=== PATIENT | female | born 1955 | race Caucasian/White ===

== ENCOUNTER 2022-09-26 11:43 | Outpatient (CLI) | payer MEDICARE, SELFPAY ==
--- NOTE | ~2022-09-26 | MR_ITS ---
EXAMINATION: MR lumbar spine wo con DATE: 09/26/2022 13:33 INDICATION: Quadriceps weakness TECHNIQUE: Magnetic resonance imaging (MRI) of the lumbar spine was performed without intravenous con trast. Sequences included sagittal T2-weighted FSE, sagittal T2-weighted FS FSE, sagittal T1-weighted FSE, and axial T2-weighted FSE. COMPARISON: None FINDINGS: S-shaped curvature of the lumbar and lower thoracic spine with 9 degrees levocurvature measured betwe en T12 and L3 and 5 degrees dextrocurvature between L3 and L5. Sagittal alignment is normal. Vertebra l body heights are normal. Small Schmorl's node along the inferior endplate of L1. Small T1 hyperinte nse hemangioma at L1 and L4. Mild fibrofatty degenerative endplate changes along the anterior endplat es at multiple levels in the lumbar and lower thoracic spine. Mild disc height loss at L3-L4 and with right-sided predominance at L1-L2 and L2-L3. The conus medullaris terminates at L1-L2. There is norm al signal in the caudal spinal cord. Paravertebral soft tissues are unremarkable. The following disc levels are specifically discussed: T12-L1: Disc is minimally bulging. There is mild bilateral facet joint osteoarthritis. There is no ne ural foraminal stenosis. There is no central canal stenosis. L1-L2: Disc is bulging. There is mild bilateral facet joint osteoarthritis. There is mild bilateral n eural foraminal stenosis. There is mild central canal stenosis. L2-L3: Disc is bulging with annular fissure. There is mild right and moderate left facet joint osteoa rthritis. There is mild bilateral neural foraminal stenosis. There is mild central canal stenosis. L3-L4: Disc is bulging with annular fissure There is mild bilateral facet joint osteoarthritis. There is mild bilateral neural foraminal stenosis. There is mild central canal stenosis. L4-L5: Disc is bulging. There is severe bilateral facet joint osteoarthritis. There is a 10 x 7 x 6 m m synovial cyst arising from the medial aspect of the right facet joint which contributes to narrowin g of the central canal and right lateral recess. There is mild bilateral neural foraminal stenosis. T here is mild central canal stenosis and mild on the right lateral recess. L5-S1: Disc is minimally bulging. There is moderate right and severe left facet joint osteoarthritis. There is negligible bilateral neural foraminal stenosis. There is no central canal stenosis. IMPRESSION: 1. Mild lumbar spondylosis. Reviewed, dictated and finalized at location A. IMPRESSION: 1. Mild lumbar spondylosis.
== END 2022-09-26 11:44 | disposition home or self-care (01) ==
LOC: ANHIMG 11:51
PROVIDERS: PCP Student in an Organized Health Care Education/Training Program; Visit Provider Orthopaedic Surgery
DX: M62.81 Muscle weakness (generalized) (principal); M47.896 Other spondylosis, lumbar region
CPT/HCPCS: 72148

== ENCOUNTER 2022-11-19 13:58 | Outpatient (CLI) | payer MEDICARE, SELFPAY ==
--- NOTE | 2022-11-19 14:56 | ECG_ITS ---
Measurements Intervals Lewis Rate: 63 P: 33 NE: 170 QRS: -5 QRSD: 110 T: 11 QT: 418 QTc: 429 Interpretive Statements SINUS RHYTHM LOW QRS VOLTAGE IN PRECORDIAL LEADS INCOMPLETE RIGHT BUNDLE BRANCH BLOCK BORDERLINE T WAVE ABNORMALITY- ANTERIOR LEADS BASELINE ARTIFACT- I, II, III, AVR, AVL, AVF, V1-V6 BORDERLINE ECG NO PREVIOUS ECG AVAILABLE FOR COMPARISON Electronically Signed On 11-19-2022 18:45:46 CDT by Miguel Edwards D.O.
[2022-11-19 15:40] LABS: Basophils Absolute Auto 0.1 K/mm3 (0.0-0.1); Basophils Percent Auto 0.7 % (0.2-1.2); Eosinophils Absolute Auto 0.2 K/mm3 (0-0.3); Eosinophils Percent Auto 2.4 % (0-4.4); Hematocrit 40.1 % (37.0-47.0); Hemoglobin 12.7 g/dL (12.0-15.0); Immature Granulocyte Absolute 0.01 K/mm3 (0.00-0.031); Immature Granulocyte Percent A 0.1 % (0-0.5); Lymphocytes Absolute Auto 2.41 K/mm3 (0.9-3.2); Lymphocytes Percent Auto 33.5 % (18.3-44.2); Mean Corpuscular HGB Conc 31.7 g/dl (32-36); Mean Corpuscular Hemoglobin 29.3 pg (26-34); Mean Corpuscular Volume 92.6 fl (80-100); Mean Platelet Volume 9.9 fl (7.4-10.4); Monocytes Absolute Auto 0.5 K/mm3 (0.1-0.6); Monocytes Percent Auto 6.4 % (2.6-8.5); Neutrophils Absolute Auto 4.1 K/mm3 (1.3-6.7); Neutrophils Percent Auto 56.9 % (45.5-73.1); Platelet Count Result 267 k/mm3 (150-375); Red Blood Count 4.33 M/mm3 (4.2-5.4); Red Cell Distribution Width 12.8 % (11.5-14.5); White Blood Count 7.2 K/mm3 (4.5-10.0)
[2022-11-19 15:54] LABS: Albumin Level 4.3 g/dL (3.5-5.1); Anion Gap 8 mmol/L (8-16); Blood Urea Nitrogen 13 mg/dL (7-17); Carbon Dioxide 24 mmol/L (22-30); Chloride 105 mmol/L (98-107); Estimated Glomerular Filt Rate > 60; Glucose 100 mg/dL (65-110); Potassium 3.5 mmol/L (3.4-5.0); Sodium 137 mmol/L (137-145)
[2022-11-19 16:18] LABS: Urine Cotinine NEGATIVE
[2022-11-19 16:25] LABS: Hemoglobin A1C 5.5 % (<5.7)
== END 2022-11-19 13:59 | disposition home or self-care (01) ==
LOC: ANHSURGERY 14:03
PROVIDERS: PCP Student in an Organized Health Care Education/Training Program; Visit Provider Orthopaedic Surgery
DX: M17.12 Unilateral primary osteoarthritis, left knee (principal); Z01.818 Encounter for other preprocedural examination; I45.10 Unspecified right bundle-branch block
CPT/HCPCS: 80048; 80307; 82040; 83036; 85025; 87081; 93005

== ENCOUNTER 2022-12-10 02:16 | Day surgery (SDC) | payer MEDICARE, SELFPAY ==
[2022-11-19 14:08] VITALS: BMI 32.6
--- NOTE | 2022-11-19 14:36 | PC.NURSE ---
Report to the Outpatient Waiting Room, entrance under the green pavilion located off [facility], at time __0600 on date __12/10/22 . Planned Procedure Time: _0730 . Time changes happen often and if your time is changed the preop area will call you the afternoon before. - You and your visitor will be asked to self-screen and do not enter if you have any COVID symptoms. - A mask is optional within the hospital at this time. Patients may have clear liquids (water, carbonated beverages, clear teas, apple juice) until 3 hours prior to surgery with a maximum of 20 ounces. - No food from midnight until time of surgery - Infants may have breast milk until 4 hours before surgery, formula 6 hours prior to surgery. - Children will be allowed to drink immediately following surgery. If applicable, please bring a bottle or sippy cup to assist with drinking. Juice, water, soda, and popsicles are readily available. For infants on formula, please bring formula the day of surgery. Pacifiers are allowed. Take the following medications with a SIP of water the morning of surgery: ALPRAZOLAM IF NEEDED,FLUOXETIEN,GABAPENTIN,METOPROLOL DO NOT STOP ANY OF YOUR OTHER PRESCRIPTION MEDICATIONS PRIOR TO SURGERY ?EXCEPT THE FOLLOWING Medications to discontinue per physician ____ALL VITAMINS 3 DAYS PRE OP.LAST DOSE 12/06/22 Please no make-up, nail croatian, hairspray, perfume, deodorant, or body powder the day of surgery. No jewelry (including any body piercings) or valuables the day of surgery, leave them at home. Please take a shower or bath the night before, or the morning of, surgery with an antibacterial soap. Wear comfortable, loose fitting clothing. Children are encouraged to wear pajamas. - Jewelry must be removed prior to entering the operating room. Rings and piercings that are not removed may be cut off. - The hospital will not accept responsibility for valuables. - Please leave all valuables, including medications, at home the day of surgery. If you are going home after surgery, a licensed pile driver engineer must drive you home. - NO public transportation without another adult if you receive anesthesia. - We recommend that an adult stay with you for 24 hours following discharge. - We also recommend that you do not drive, make important decision, drink alcoholic beverages, or take any drugs that were not prescribed by your health care provider for at least 24 hours after your discharge time. For Pediatric surgeries, we recommend two adults accompany the child home. Follow any additional instructions given to you from your surgeon. If you or anyone in your household have experienced Covid symptoms in the past week, please notify your surgeon or the nurse liaison at the phone number below for possible testing. VERBAL AND WRITTEN instructions given to _PATIENT and asked if any additional questions and then verbalized understanding. Patient advised to call surgeon office or pre surgery nurse liaison [phone] if any additional questions.
[2022-11-19 14:52] VITALS: BP 126/63; PULSE 67; RESP 18; TEMP 37; O2SAT 98
--- NOTE | 2022-12-07 11:31 | PM.IMHP ---
H&P: HPI History of Present Illness Date/Time: 12/07/22 11:31 Chief Complaint: Left knee DJD Narrative: 67-year-old female patient of presents today for a left total knee arthroplasty. She has had continued symptoms in the for years. She has had 2 previous arthroscopies to the knee. She has had cortisone injections in the past she has tried bracing as well as anti-inflammatory medications. She has severe medial compartment osteoarthritis and continued symptoms of pain in the knee. She feels that the pain is affecting lifestyle at this point she would like to proceed with total knee arthroplasty rather continue nonsurgical treatment. Review of Systems Review of Systems: All systems reviewed & are unremarkable except as noted in HPI and below PMFSH Social History Social History Smoking status: Never smoker Additional smoking assessment comments: DENIES ANY FORM OF TOBACCO USE Alcohol intake: current Alcohol use details: 2 DRINKS PER MONTH Living arrangements: with family Spiritual care concerns: No Meds Home Medications and Allergies Home Medications Medication Instructions Recorded Confirmed Type alprazolam 0.5 mg tablet 0.5 mg PO PRN PRN Anxiety 11/19/22 11/19/22 History celecoxib 200 mg capsule 200 mg PO DAILY 11/19/22 11/19/22 History cholecalciferol (vitamin D3) 125 125 mcg PO DAILY 11/19/22 11/19/22 History mcg (5,000 unit) tablet fluoxetine 20 mg capsule 20 mg PO DAILY 11/19/22 11/19/22 History gabapentin 300 mg capsule 300 mg PO BID FIBROMYALGIA 11/19/22 11/19/22 History gabapentin 300 mg capsule 600 mg PO HS 11/19/22 11/19/22 History metoprolol succinate 25 mg 25 mg PO DAILY MIGRAINS 11/19/22 11/19/22 History tablet,extended release 24 hr minoxidil 2.5 mg tablet 1.25 mg PO DAILY 11/19/22 11/19/22 History zolpidem 5 mg tablet 5 mg PO HS 11/19/22 11/19/22 History Allergies Allergy/AdvReac Type Severity Reaction Status Date / Time No Known Allergies Allergy Unverified 11/19/22 14:09 Exam Narrative: 67-year-old female alert pleasant. She is 5 ft 3 199 lb BMI is 35.3 motion left knee is from 0-125. she has severe tenderness pes bursa. Severe tenderness over greater trochanter. She has normal abduction strength in lateral position. She has some chronic weakness with quadriceps extension strength. There is a mild effusion left knee. Hip range of motion causes no discomfort. She has normal sensation both lower extremities. 2+ dorsalis pedis pulse in foot. Pain with the patellofemoral inhibition testing. She does report some numbness to the lateral calf which is chronic. Resp: Auscultation: clear to auscultation bilaterally Cardio: Rate: regular rate Rhythm: regular rhythm Assessment and Plan Assessment and plan (1) Left knee DJD: Code(s): M17.12 - Unilateral primary osteoarthritis, left knee Status: Acute Plan 67-year-old female who has severe medial compartment osteoarthritis with continued symptoms. Again this point she feels she is ready to proceed with total arthroplasty. Surgical procedure as well as risks and complications were discussed in detail and all questions were answered and we will proceed. Patient will avoid any aspirin ibuprofen products 1 week prior to surgery. We will not have her take her Celebrex the morning of surgery. She will see her primary care doctor for pre-surgical clearance. Patient's nasal swab was negative. Chem panel is all within normal limits creatinine is 0.70. Hemoglobin 12.7 and platelets are 267 will plan to use Eliquis for DVT prophylaxis postoperatively.
[2022-12-10] VITALS (17 sets, daily range): BP systolic 110–147; BP diastolic 51–71; PULSE 64–94; RESP 14–20; TEMP 35.9–36.8; O2SAT 91–100
--- NOTE | ~2022-12-10 | XR_ITS ---
EXAMINATION: [id number] DATE: 12/10/2022 11:00 INDICATION: Postoperative evaluation following left total knee arthroplasty. TECHNIQUE: Anteroposterior and lateral views of the left knee were obtained. COMPARISON: None. FINDINGS: Left total knee arthroplasty without patellar resurfacing appears well seated and in near anatomic al ignment. No fractures identified. Expected postoperative subcutaneous and intra-articular gas. IMPRESSION: 1. Left total knee arthroplasty, negative for postoperative purposes. Reviewed, dictated and finalized at location A.
[2022-12-10] MEDS: ACETAMINOPHEN 500 MG TABLET 1000 MG PO ×3 (06:25→23:46)
[2022-12-10] MEDS: TRANEXAMIC ACID 1,000MG/ISO100 1,000 MG/100 ML BAG 200 MG IVPB (06:30)
[2022-12-10] MEDS: LACTATED RINGERS 1,000 ML 30 ML IV CONT ×2 (06:30→11:00)
[2022-12-10] MEDS: VANCOMYCIN 1,250 MG/NS 250 ML BAG 166.67 MG IVPB (06:30)
--- NOTE | 2022-12-10 07:08 | P.PNAN_ITS ---
Anes - Initial Pre Proc Eval Procedure: Operation Date: 12/10/22 07:30 Proposed Procedures p Left Total Knee Arthroplasty - Sumit Quezada MD Date/Time: 12/10/22 07:08 Surgeon: Sumit Quezada MD Pre Op Diagnosis: oa left knee Patient Data Age: 67 Gender: F Height: 1.65 m Weight: 88.6 kg Last Vital Signs Temp 97.5 F L 12/10/22 06:13 Pulse 72 12/10/22 06:13 Resp 18 12/10/22 06:13 BP 128/71 12/10/22 06:13 Pulse Ox 94 12/10/22 06:13 O2 Del Method Room Air 12/10/22 06:13 Allergies Allergy/AdvReac Type Severity Reaction Status Date / Time No Known Allergies Allergy Unverified 12/10/22 06:48 Home Medications Medication Instructions Recorded Confirmed Type alprazolam 0.5 mg tablet 0.5 mg PO PRN PRN Anxiety 11/19/22 11/19/22 History celecoxib 200 mg capsule 200 mg PO DAILY 11/19/22 12/10/22 History cholecalciferol (vitamin D3) 125 125 mcg PO DAILY 11/19/22 12/10/22 History mcg (5,000 unit) tablet fluoxetine 20 mg capsule 20 mg PO DAILY 11/19/22 12/10/22 History gabapentin 300 mg capsule 300 mg PO BID FIBROMYALGIA 11/19/22 12/10/22 History gabapentin 300 mg capsule 600 mg PO HS 11/19/22 12/10/22 History metoprolol succinate 25 mg 25 mg PO DAILY MIGRAINS 11/19/22 12/10/22 History tablet,extended release 24 hr minoxidil 2.5 mg tablet 1.25 mg PO DAILY 11/19/22 12/10/22 History zolpidem 5 mg tablet 5 mg PO HS 11/19/22 12/10/22 History Laboratory Tests 12/10/22 06:22 Blood Type Pending Antibody Screen Pending Patient hx anesthesia problems: none Family hx anesthesia problems: none Results Review: All pre-operative results and documents have been reviewed as part of the pre- operative evaluation. PMFSH Social History Social History Smoking status: Never smoker Additional smoking assessment comments: DENIES ANY FORM OF TOBACCO USE Alcohol intake: current Alcohol use details: 2 DRINKS PER MONTH Living arrangements: with family Spiritual care concerns: No Anes - Eval Final PreProcedure Day of Procedure 12/10/22 07:08 Patient weight: obese Heart: regular rate and rhythm Lungs: clear to auscultation Airway: Mallampati scale class II Neurological: alert and oriented Last oral intake: >/= 8 hours ASA classification: III Emergent: no Anesthetic plan: proceed Anesthesia type and monitoring: general LMA and ETT and standard monitoring Results Review: All pre-operative results and documents have been reviewed as part of the pre-operative evaluation. Informed Consent: The patient's anesthetic plan and its attendant risks and benefits were discussed with the patient/family/POA. Questions were solicited and answers provided to the satisfaction of the patient/family/POA.
--- NOTE | 2022-12-10 07:15 | WPDHPUPDATE1 ---
History and Physical Update Update Date/Time: 12/10/22 07:15 History and Physical has been reviewed, including an updated exam of the patient. There are NO changes in the patient's condition. Risks, benefits, and alternatives have been discussed and questions answered. Patient agrees to proceed with procedure.
[2022-12-10] MEDS: ceFAZolin 2 GM/D5W 50 ML 2 GM/50 ML BAG IVPB (07:34)
[2022-12-10] MEDS: ceFAZolin SODIUM 1 GM VIAL 3 GM IRRIGATION (09:17)
[2022-12-10] MEDS: GENTAMICIN BONE CEMENT REFOBACIN 1 EACH TOPICAL (09:47)
[2022-12-10] MEDS: ceFAZolin SODIUM 1 GM VIAL 2 GM IV PUSH (10:03)
[2022-12-10] MEDS: TRANEXAMIC ACID 1,000 MG/10 ML AMPUL 1 MG IV PUSH (10:12)
[2022-12-10] MEDS: KETOROLAC 15 MG/ML VIAL (*BKC) IV PUSH ×3 (10:24→19:10)
--- NOTE | 2022-12-10 10:54 | W.PM.PROC2 ---
Procedure Note - Detailed Date of Procedure 12/10/22 Pre-op Diagnosis oa left knee, obesity with BMI of 35.3 Post-op Diagnosis Same Procedure Performed Left total knee arthroplasty Surgeon Sumit Quezada MD Workforce Manager [facility] Anesthesia General Description of Procedure Patient had a BMI of 5.2 and there was obesity distribution in the lower extremities and around the knee which added extra difficulty to the procedure estimated at adding 45 minutes of operative time. Patient was brought to the operating room and general anesthesia was administered. She received 2 g of Ancef weight based vancomycin 1 g of tranexamic acid preoperatively and the left leg prepped and draped in the usual fashion. Initially she had a mildly positive bounce but has anesthesia deep and she seemed to hyperextend a couple of degrees and had a fair amount of varus valgus pseudolaxity. Limb was exsanguinated and tourniquet elevated to 300 mmHg. An 8 in longitudinal midline incision was used and a vastus medialis splitting approach utilized splitting the vastus medialis at the level of the superior pole the patella. Infrapatellar and suprapatellar fat pads were excised the quadriceps synovectomy carried out. Minimal osteophytes removed patella the articular cartilage of the patella was in good condition mild central chondromalacia. Patellar thickness was 20 mm. Taking in consideration the thinness of the patella her weight and the relative osteopenia I felt that non resurfacing of the patella was most appropriate for her. A limited lateral facetectomy was performed. A guide jerry was inserted on femoral canal after aspiration of canal contents and using the 5 degree valgus cutting bushing, 8 mm of bone removed the distal femur. This measured off the lateral femoral condyle actually little bit less this was removed the medial femoral condyle because of marked bone wear. Next the tibial plateau was cut. We made a skim cut just under the cortical bone of the low point of medial tibial plateau. This was made perpendicular to the axis of tibia. Bone quality of the lateral tibial plateau was a little softer as was the bone of lateral femoral condyle. Bone density medially medial femoral condyle and medial tibial plateau was much better. Meniscal remnants were excised and the PCL was recessed. Flexion gap measured 8 mm medially 12 mm laterally after provisional removal of medial tibial plateau osteophyte without any capsular strip. The sizing guide was applied at 4? of external rotation posterior referencing pinholes were placed. This reference well off Whitesides line. And we applied the size 62.5 vanguard cutting block. This was going to notch little bit so we did flexed the distal femoral cut a couple of degrees. The bone density was a little bit poor for fixation of the pins in the bone and we used the threaded stabilizing pins spring pins as well. AP and chamfer cuts were made. The size 62.5 while sitting flush on the medial side hung over the lateral side about 1 mm distal anterior was line to line anteriorly distally. Tibia was sized to a size 67 which fit line to line anteromedial to posterolateral at proper rotation. This was punched. We trialed with the 10 insert. The knee lacked full extension with no play medially and 2 or 3 mm plate laterally. The little bit of protruding posteromedial tibial plateau bone was removed again without release of capsule and additional 1 mm of bone was removed the distal femur and posterior femoral osteophytes removed at this time. Tourniquet had been put down at 90 minutes. Trialing with the tourniquet down knee came out easily now to full extension with a mm and half of medial opening 3 mm lateral opening and appropriate stability throughout range motion. With the arthrotomy towel clip the knee came out still to full extension with a mm of medial opening and excellent anterior drawer stability in all positions. [place] flexion was to abo
--- NOTE | 2022-12-10 11:06 | PM.OP ---
Procedure Note - Brief Procedure Note - Brief Date of procedure: 12/10/22 oa left knee Procedure performed: Left total knee arthroplasty Surgeon: MAIDA Li Findings: 67-year-old female who underwent left total knee arthroplasty on 12/10. I was involved in the procedure including positioning patient on the OR table as well as 1st assisting through the time surgery. Total time spent was 3 hours
[2022-12-10] MEDS: fentaNYL CITRATE INJ (*CRX) 100 MCG/2 ML VIAL 25 MCG IV PUSH ×8 (11:12→11:51)
[2022-12-10] MEDS: HYDROmorphone HCL INJ (*CRX) 1 MG/ML SYR 0.5 MG IV PUSH ×4 (12:07→12:57)
[2022-12-10] MEDS: SENNA/DOCUSATE SODIUM TABLET 2 TAB PO (15:59)
[2022-12-10] MEDS: oxyCODONE HCL (*CRX) 5 MG TAB IR PO ×3 (15:59→23:46)
[2022-12-10] MEDS: GABAPENTIN 300 MG CAPSULE PO (15:59)
[2022-12-10] MEDS: ceFAZolin 1 GM/NS 50 ML 1 GM/50 ML BAG IVPB ×2 (16:01→23:46)
[2022-12-10 17:11] LABS: Vitamin D 25 Hydroxy 39.9 ng/mL
[2022-12-10] MEDS: VANCOMYCIN 1,000 MG/NS 250 ML 1,000 MG/250 ML BAG 250 MG IVPB (19:11)
[2022-12-10] MEDS: ZOLPIDEM TARTRATE (*CRX) 5 MG TABLET PO (20:17)
[2022-12-10] MEDS: FAMOTIDINE 20 MG TABLET PO (20:17)
[2022-12-10] MEDS: GABAPENTIN 300 MG CAPSULE 600 MG PO (20:17)
[2022-12-11 02:57] VITALS: BP 105/46; PULSE 65; RESP 18; TEMP 36.3; O2SAT 92
[2022-12-11] MEDS: VANCOMYCIN 1,000 MG/NS 250 ML 1,000 MG/250 ML BAG 250 MG IVPB (05:04)
[2022-12-11] MEDS: ACETAMINOPHEN 500 MG TABLET 1000 MG PO ×2 (05:04→12:00)
[2022-12-11] MEDS: oxyCODONE HCL (*CRX) 5 MG TAB IR PO ×3 (05:04→12:00)
[2022-12-11] MEDS: DEXAMETHASONE SOD PHOS INJ 4 MG/ML VIAL 8 MG IV PUSH ×2 (06:00→12:00)
--- NOTE | 2022-12-11 06:13 | PM.PNORT ---
Subjective Subjective Date/Time Seen: 12/11/22 06:13 Interval history: Postop day 1 patient is alert. She is afebrile vital signs stable. Morning labs are not completed yet. She was up walking yesterday with physical therapy in [place]. Overall pain is very well controlled. Dressing is dry and intact. Neurovascularly she is intact. Overall patient is doing very well. We will plan to have her work with therapy today and discharge her home either later this morning or this afternoon depending on how she does with therapy Objective Data Vital Signs Vital Signs: Vital Signs - 24 hr 12/10/22 11:00 12/10/22 11:15 12/10/22 11:30 Temperature 36.8 C Pulse Rate 82 73 74 Respiratory Rate 20 18 18 Blood Pressure 130/61 135/63 123/60 Pulse Oximetry 97 100 100 Oxygen Delivery Simple Face Mask Simple Face Mask Simple Face Mask Oxygen Flow Rate 8 8 8 12/10/22 11:35 12/10/22 11:50 12/10/22 12:00 Temperature 36.8 C Pulse Rate 76 75 64 Respiratory Rate 15 14 14 Blood Pressure 125/61 122/57 L 124/64 Pulse Oximetry 99 94 99 Oxygen Delivery Room Air Room Air Room Air Oxygen Flow Rate 12/10/22 12:15 12/10/22 12:30 12/10/22 12:45 Temperature Pulse Rate 71 71 72 Respiratory Rate 18 16 18 Blood Pressure 117/66 131/55 L 147/65 H Pulse Oximetry 99 100 99 Oxygen Delivery Room Air Room Air Room Air Oxygen Flow Rate 12/10/22 13:00 12/10/22 13:20 12/10/22 13:35 Temperature 35.9 C L 36.0 C L Pulse Rate 72 69 75 Respiratory Rate 16 17 17 Blood Pressure 134/61 143/62 H 137/62 Pulse Oximetry 99 98 93 Oxygen Delivery Room Air Oxygen Flow Rate 12/10/22 14:05 12/10/22 14:30 12/10/22 15:05 Temperature 36.3 C L 36.3 C L Pulse Rate 79 93 Respiratory Rate 16 16 Blood Pressure 135/61 110/63 Pulse Oximetry 97 96 Oxygen Delivery Room Air Oxygen Flow Rate 12/10/22 14:00 12/10/22 19:51 12/10/22 18:57 Temperature 36.6 C Pulse Rate 90 Respiratory Rate 18 Blood Pressure 113/51 L Pulse Oximetry 95 Oxygen Delivery Room Air Room Air Oxygen Flow Rate 12/10/22 22:57 12/11/22 02:57 Temperature 36.3 C L Pulse Rate 94 65 Respiratory Rate 18 18 Blood Pressure 123/71 105/46 L Pulse Oximetry 91 92 Oxygen Delivery Oxygen Flow Rate Intake/Output Intake/Output: Intake & Output 12/08/22 12/09/22 12/10/22 12/11/22 23:59 23:59 23:59 23:59 Intake Total 650 700 Balance 650 700 Meds/Results Medications: Active Medications Generic Name Dose Route Start Last Admin Trade Name Freq PRN Reason Stop Dose Admin Acetaminophen 1,000 mg 12/10/22 18:00 12/11/22 05:04 Acetaminophen 500 Mg Tablet PO 1,000 mg Q6H JANNETH Administration Apixaban 2.5 mg 12/11/22 09:00 Apixaban 2.5 Mg Tablet PO 12/22/22 21:01 Q12HR JANNETH Calcium Citrate 1 tablet 12/10/22 17:00 12/10/22 15:59 Calcium Citrate 315 Mg/Vitamin D 250 Units Tab PO 1 tablet BID JANNETH Administration Cefdinir 300 mg 12/11/22 09:00 Cefdinir 300 Mg Capsule PO Q12HR [facility] Dexamethasone Sodium Phosphate 8 mg 12/11/22 07:00 12/11/22 06:00 Dexamethasone Sod Phos Inj 4 Mg/Ml Vial IV PUSH 8 mg Q6HR JANNETH Administration Diphenhydramine HCl 25 mg 12/10/22 13:12 Diphenhydramine Hcl Inj 50 Mg/Ml Vial IV PUSH Q6H PRN Itching Famotidine 20 mg 12/10/22 21:00 12/10/22 20:17 Famotidine 20 Mg Tablet PO 20 mg Q12HR JANNETH Administration Fluoxetine HCl 20 mg 12/11/22 09:00 Fluoxetine Hcl 20 Mg Capsule PO DAILY JANNETH Gabapentin 300 mg 12/10/22 17:00 12/10/22 15:59 Gabapentin 300 Mg Capsule PO 300 mg BID JANNETH Administration Gabapentin 600 mg 12/10/22 21:00 12/10/22 20:17 Gabapentin 300 Mg Capsule PO 600 mg HS JANNETH Administration Vancomycin HCl 1,000 mg in 250 mls @ 250 mls/hr 12/10/22 18:00 12/11/22 06:04 Vancomycin 1,000 Mg/Ns 250 Ml IVPB 12/11/22 06:59 Infused Q12H JANNETH Infusion Cefazolin Sodium 1 gm in 50 mls @ 100 mls/hr
--- NOTE | 2022-12-11 06:17 | PM.DS ---
DS: Admitting Diagnosis Discharge Date 12/11 Admitting Diagnosis Left knee DJD DS: Discharge Diagnosis Discharge Diagnosis (1) Left knee DJD: Code(s): M17.12 - Unilateral primary osteoarthritis, left knee Status: Acute DS: Summary Hospital Course Hospital Course: 67-year-old female underwent left total knee arthroplasty on 12/10. Underwent the procedure without complications. Postoperatively she has been afebrile vital signs are stable. Neurovascularly she is intact. She was up walking with physical therapy the day of surgery and is comfortable. Pain is well controlled with scheduled Tylenol as well as oxycodone 5 mg. She is on Eliquis for DVT prophylaxis. Patient has a history of brain aneurysm so we are not continues Celebrex on her while she is on the Eliquis. Postop day 1 she was alert comfortable. Patient be discharged home on 12/11. She was advised to keep leg elevated home prevent swelling but do her exercises on hourly basis. She go home with a 1 week course of Omnicef. She also go home Senokot MiraLax. Patient has outpatient therapy starting on Saturday of this week. She was advised any questions or concerns she is to call the office otherwise we will see her at appointed dates. At time of dictation morning labs on postop day 1 and not been completed yet. We will check on these for discharge. Time Spent with Patient Time attestation: Total time spent providing and/or coordinating discharge services: DS: Data Data Completed and Pending Labs on day of discharge: Labs from last 24 hours 12/10/22 12/10/22 15:06 06:22 Vitamin D 25-Hydroxy 39.9 Blood Type AB Positive Antibody Screen Negative Discharge Plan Discharge Patient Disposition: Home, Self-Care Discharge Instructions: SUMIT QUEZADA M.D [facility] [address] [address] POST-OPERATIVE DISCHARGE INSTRUCTIONS TOTAL KNEE ARTHROPLASTY 1. When resting, lie on back with leg elevated above heart to minimize swelling. Significant swelling could indicate a blood clot and if this occurs call the office (or go to the ER) to have a venous ultrasound. 2. Do exercise 5 times a day. 3. Do not sit with leg down except for meals. 4. Wound Care: Nursing will give additional dressings at discharge. Patient to change dressing at home 1 week from surgery, then maintain until seen in office. 5. May shower with dressing in place. 6. Follow weight bearing status instructions. IMPORTANT: Remember not to sit in the chair for more than 30 minutes at a time. As a rule, during the first 14 days after surgery, only sit in the chair to work on the chair knee bending stretch exercise, for meals or for use of the restroom. Sitting in the chair promotes significant swelling in the knee and leg which will make the knee stiff and more painful and which simulates having a blood clot in the veins of the leg. If this type of significant diffuse swelling occurs, an ultrasound at the hospital will be necessary to rule out a blood clot. Be up walking around with the walker for a few minutes every hour while awake and then rest laying on your back on the couch or in bed with your leg elevated on cushions or pillows. Do not rest in the chair. Stand Alone Forms: General Discharge Instructions Follow-up/Referrals: Sumit Quezada MD [Physician] - Keep Reg. Scheduled Appt. Discharge Medications: New acetaminophen 500 mg Tablet 1,000 mg PO Q6H Qty: 90 0RF Eliquis 2.5 mg Tablet 2.5 mg PO Q12HR Qty: 28 0RF cefdinir 300 mg Capsule 300 mg PO Q12HR Qty: 14 0RF polyethylene glycol 3350 [Miralax] 17 gram Powder In Packet 17 g PO QAM Qty: 30 0RF sennosides-docusate sodium [Senokot-S] 8.6-50 mg Tablet 2 tab PO BID Qty: 60 0RF oxycodone 5 mg Tablet 5 mg PO Q4HR Qty: 40 0RF Continued minoxidil 2.5 mg tablet 1.25 mg PO DAILY al
[2022-12-11 06:57] VITALS: BP 105/42; PULSE 58; RESP 22; TEMP 36.5; O2SAT 92
[2022-12-11 07:03] LABS: Basophils Percent Auto 0.3 % (0.2-1.2); Eosinophils Percent Auto 0.1 % (0-4.4); Hemoglobin 10.4 g/dL (12.0-15.0); Immature Granulocyte Absolute 0.03 K/mm3 (0.00-0.031); Immature Granulocyte Percent A 0.3 % (0-0.5); Lymphocytes Absolute Auto 2.69 K/mm3 (0.9-3.2); Lymphocytes Percent Auto 23.1 % (18.3-44.2); Mean Corpuscular HGB Conc 31.5 g/dl (32-36); Mean Corpuscular Hemoglobin 29.3 pg (26-34); Monocytes Percent Auto 8.3 % (2.6-8.5); Neutrophils Absolute Auto 7.9 K/mm3 (1.3-6.7); Neutrophils Percent Auto 67.9 % (45.5-73.1); Platelet Count Result 238 k/mm3 (150-375); Red Blood Count 3.55 M/mm3 (4.2-5.4); Red Cell Distribution Width 13.1 % (11.5-14.5); White Blood Count 11.6 K/mm3 (4.5-10.0)
[2022-12-11 07:18] LABS: Anion Gap 6 mmol/L (8-16); Blood Urea Nitrogen 15 mg/dL (7-17); Calcium 8.3 mg/dL (8.4-10.2); Carbon Dioxide 24 mmol/L (22-30); Chloride 106 mmol/L (98-107); Estimated CRCL calculation 64 ml/min; Estimated Glomerular Filt Rate > 60; Glucose 135 mg/dL (65-110); Potassium 3.7 mmol/L (3.4-5.0); Sodium 136 mmol/L (137-145)
--- NOTE | 2022-12-11 08:25 | PCOTNOTE ---
Communication with patients RN in regards to patient knee buckle requiring Min A to help maintain. Patient had 3 instances during treatment session.
[2022-12-11] MEDS: GABAPENTIN 300 MG CAPSULE PO (08:30)
[2022-12-11 08:32] VITALS: PULSE 64
[2022-12-11] MEDS: METOPROLOL SUCCINATE EXT REL 25 MG TABCR PO (08:32)
[2022-12-11] MEDS: APIXABAN 2.5 MG TABLET PO (08:32)
[2022-12-11] MEDS: SENNA/DOCUSATE SODIUM TABLET 2 TAB PO (08:37)
[2022-12-11] MEDS: CEFDINIR 300 MG CAPSULE PO (08:38)
[2022-12-11] MEDS: CHOLECALCIFEROL 1,000 UNITS TABLET 5000 UNITS PO (08:38)
[2022-12-11] MEDS: FAMOTIDINE 20 MG TABLET PO (08:41)
[2022-12-11] MEDS: FLUoxetine HCL 20 MG CAPSULE PO (08:41)
[2022-12-11] MEDS: polyethylene glycoL 3350 17 GM POWD.PACK PO (08:42)
--- NOTE | 2022-12-11 09:05 | P.PNAN_ITS ---
Anes - Prog Note Post-Op Date/Time: 12/11/22 09:05 Cardiovascular status: normal Respiratory status: normal Airway patency: baseline Mental status: baseline Post-Op hydration status: normal Vital Signs: Last Vital Signs Temp 97.7 F 12/11/22 06:57 Pulse 64 12/11/22 08:32 Resp 22 H 12/11/22 06:57 BP 105/42 L 12/11/22 06:57 Pulse Ox 92 12/11/22 06:57 O2 Del Method Room Air 12/10/22 19:51 O2 Flow Rate 8 12/10/22 11:30 Pain Score (VAS): 5 I/O: Intake & Output 12/10/22 12/11/22 12/11/22 23:59 07:59 15:59 Intake Total 300 700 Balance 300 700 Laboratory Tests 12/11/22 06:25 12/11/22 06:25 12/10/22 12/11/22 15:06 06:25 WBC 11.6 H RBC 3.55 L Hgb 10.4 L Hct 33.0 L MCV 93.0 MCH 29.3 MCHC 31.5 L RDW 13.1 Plt Count 238 MPV 10.0 Immature Gran % (Auto) 0.3 Neut % (Auto) 67.9 Lymph % (Auto) 23.1 [place] % (Auto) 8.3 Eos % (Auto) 0.1 Baso % (Auto) 0.3 Lymph # (Auto) 2.69 [place] # (Auto) 1.0 H Eos # (Auto) 0.0 Baso # (Auto) 0.0 Abs Immat Gran (auto) 0.03 Absolute Neuts (auto) 7.9 H Absolute Nucleated RBC 0.0 Nucleated RBC % 0.0 Sodium 136 L Potassium 3.7 Chloride 106 Carbon Dioxide 24 Anion Gap 6 L BUN 15 Creatinine 0.80 Estim Creat Clear Calc 64 Estimated GFR > 60 Glucose 135 H Calcium 8.3 L Vitamin D 25-Hydroxy 39.9 Post-procedural complaints: none Patient Feedback: Patient satisfied with anesthetic care.
--- NOTE | 2022-12-11 09:08 | PM.IMCN ---
Assessment and Plan Assessment and plan (1) Left knee DJD: Code(s): M17.12 - Unilateral primary osteoarthritis, left knee Status: Acute Plan Left knee degenerative joint disease, status post left total knee arthroplasty day1 No surgical complications Patient will be discharged home with pain management, continue infection prophylaxis events cefdinir 300 mg q.8 hours p.o. for 7 days and DVT prophylaxis with Eliquis 2.5 mg q.12h hours for 2 weeks Along with a stool softener as needed Essential hypertension Continue metoprolol 25 mg daily p.o. Anxiety Continue fluoxetine, Insomnia ambien q.h.s. as needed Leukocytosis Patient afebrile, likely secondary to surgical reaction Thank you for allowing us to participate in the care of the patient. Patient is okay to be discharged today HPI Data of Consult Consult date: 12/11/22 Requesting Physician: Sumit Quezada MD Primary Care Provider: oRdrigo Loera, DO Consult Narrative Narrative: Yogesh Bingham is a 67 year old female with history of anxiety, hypertension, left knee degenerative joint disease underwent left total knee arthroplasty on 12/10 under general anesthesia without complications.? Postop day 1, patient denies chest pain, shortness breast, palpitation, cough, abdomen, nausea vomiting diarrhea dysuria headache, focal weakness, patient afebrile overnight, blood pressure stable. Patient could walk with physical therapist assistance, pain is well controlled. Orthopedic surgeon has seen and examined patient today, and plans to discharge patient home with prophylactic antibiotics of Omnicef and DVT DVT prophylaxis off Eliquis Review of Systems Review of Systems: ROS negative except above PMFSH Social History Social History Smoking status: Never smoker Additional smoking assessment comments: DENIES ANY FORM OF TOBACCO USE Alcohol intake: current Alcohol use details: 2 DRINKS PER MONTH Living arrangements: with family Spiritual care concerns: No Meds Home Medications and Allergies Home Medications Medication Instructions Recorded Confirmed Type alprazolam 0.5 mg tablet 0.5 mg PO PRN PRN Anxiety 11/19/22 11/19/22 History cholecalciferol (vitamin D3) 125 125 mcg PO DAILY 11/19/22 12/10/22 History mcg (5,000 unit) tablet fluoxetine 20 mg capsule 20 mg PO DAILY 11/19/22 12/10/22 History gabapentin 300 mg capsule 300 mg PO BID FIBROMYALGIA 11/19/22 12/10/22 History gabapentin 300 mg capsule 600 mg PO HS 11/19/22 12/10/22 History metoprolol succinate 25 mg 25 mg PO DAILY MIGRAINS 11/19/22 12/10/22 History tablet,extended release 24 hr minoxidil 2.5 mg tablet 1.25 mg PO DAILY 11/19/22 12/10/22 History zolpidem 5 mg tablet 5 mg PO HS 11/19/22 12/10/22 History acetaminophen 500 mg tablet 1,000 mg PO Q6H #90 tabs 12/11/22 Rx apixaban 2.5 mg tablet (Eliquis) 2.5 mg PO Q12HR #28 tabs 12/11/22 Rx cefdinir 300 mg capsule 300 mg PO Q12HR #14 caps 12/11/22 Rx oxycodone 5 mg tablet 5 mg PO Q4HR #40 tabs 12/11/22 Rx polyethylene glycol 3350 17 gram 17 g PO QAM #30 ea 12/11/22 Rx oral powder packet (Miralax) sennosides 8.6 mg-docusate sodium 2 tab PO BID #60 tabs 12/11/22 Rx 50 mg tablet (Senokot-S) Allergies Allergy/AdvReac Type Severity Reaction Status Date / Time No Known Allergies Allergy Unverified 12/10/22 06:48 Vital Signs Vital Signs - 24 hr 12/10/22 11:00 12/10/22 11:15 12/10/22 11:30 Temperature 98.3 F Pulse Rate 82 73 74 Respiratory Rate 20 18 18 Blood Pressure 130/61 135/63 123/60 Pulse Oximetry 97 100 100 Oxygen Delivery Simple Face Mask Simple Face Mask Simple Face Mask Oxygen Flow Rate 8 8 8 12/10/22 11:35 12/10/22 11:50 12/10/22 12:00 Temperature 98.2 F Pulse Rate 76 75 64 Respiratory Rate 15 14 14 Blood Pressure 125/61 122/57 L 124/64 Pulse Oximetry 99 94 99 Oxygen Delivery Room Air Room Air Room Air Oxygen Flow Rate 12/10/22 12:15
[2022-12-11] MEDS: minoxidiL 2.5 MG TABLET 1.25 MG PO (10:31)
[2022-12-11 12:00] VITALS: BP 130/48; PULSE 64; RESP 14; TEMP 36.2; O2SAT 95
--- NOTE | 2022-12-11 14:13 | PC.NURSE ---
Pt is A&O4 female who has participated and contributed in plan of care. Pt worked with therapy this morning and tolerated well. Pt was given pain medication to help alleviate pain. Pt was educated on dressing change and was given printed script for pain medication. took papers and stored them in bag. Pt was wheeled down to car by [employer]. Pt was educated on discharge instructions and IV was removed. Pt tolerated well. Pt was given 2 dressings to take home. Pt was monitored for any changes in status while here. Pt denies any needs on discharge.
== END 2022-12-11 13:10 | disposition home or self-care (01) ==
LOC: ANHSURGERY 05:58 → ANH3MEDSUR 13:24
PROVIDERS: Physician Assistant Surgical; PCP Student in an Organized Health Care Education/Training Program; Visit Provider Orthopaedic Surgery
PROC: (CPT 27447; principal; 2022-12-10 07:30)
DX: M17.12 Unilateral primary osteoarthritis, left knee (principal); D72.829 Elevated white blood cell count, unspecified; I10 Essential (primary) hypertension; F41.9 Anxiety disorder, unspecified; G47.00 Insomnia, unspecified; E66.9 Obesity, unspecified; Z68.35 Body mass index [BMI] 35.0-35.9, adult
CPT/HCPCS: 27447; 36415; 73560; 80048; 82306; 85025; 86850; 86900; 86901; 97110; 97116; 97161; 97165; 97530; 97535; A9270; C1713; C1776; J0171; J0690; J1100; J1170; J1885; J2250; J2270; J2405; J2704; J2795; J3010; J3370; J7120

== ENCOUNTER 2023-02-22 14:24 | Emergency (ER) | payer MEDICARE, SELFPAY ==
[2023-02-22 14:35] VITALS: BP 144/65; PULSE 92; RESP 18; TEMP 36.6; O2SAT 97
[2023-02-22 17:07] VITALS: BP 195/87; PULSE 92; RESP 18; O2SAT 98
--- NOTE | 2023-02-22 19:16 | ED.GENADULT ---
HPI - General Adult General Chief complaint: Extremity Problem,Nontraumatic Stated complaint: sent from doctor for post op abscess Time Seen by Provider: 02/22/23 19:07 Source: patient Mode of arrival: ambulatory Limitations: no limitations History of Present Illness HPI narrative: this is a 67-year-old female who is 10 weeks s/p left knee arthroplasty who presents to the ED with chief complaint of left knee pain beginning 2 days ago. Reports swelling and erythema to the area. She was referred to the ED by her orthopedic office. Denies fevers, chills, nausea, vomiting or any further complaint. Related Data Home Medications Medication Instructions Recorded Confirmed alprazolam 0.5 mg tablet 0.5 mg PO PRN PRN Anxiety 11/19/22 11/19/22 cholecalciferol (vitamin D3) 125 125 mcg PO DAILY 11/19/22 12/10/22 mcg (5,000 unit) tablet fluoxetine 20 mg capsule 20 mg PO DAILY 11/19/22 12/10/22 gabapentin 300 mg capsule 300 mg PO BID FIBROMYALGIA 11/19/22 12/10/22 gabapentin 300 mg capsule 600 mg PO HS 11/19/22 12/10/22 metoprolol succinate 25 mg 25 mg PO DAILY MIGRAINS 11/19/22 12/10/22 tablet,extended release 24 hr minoxidil 2.5 mg tablet 1.25 mg PO DAILY 11/19/22 12/10/22 zolpidem 5 mg tablet 5 mg PO HS 11/19/22 12/10/22 Allergies Allergy/AdvReac Type Severity Reaction Status Date / Time No Known Allergies Allergy Verified 02/22/23 19:31 Review of Systems Review of Systems: All systems as dictated in [facility] Social History Social History Smoking status: Never smoker Additional smoking assessment comments: DENIES ANY FORM OF TOBACCO USE Alcohol intake: current Alcohol use details: 2 DRINKS PER MONTH Living arrangements: with family Spiritual care concerns: No Exam Narrative: GENERAL: Well-appearing, well-nourished, and in no acute distress. HEAD: Normocephalic, atraumatic. EYES: PERRLA and EOMI. ENT: Nares clear, no rhinorrhea or epistaxis. Mucous membranes moist. Oropharynx without tonsillar hypertrophy exudate or other lesions. NECK: Supple. No adenopathy or masses. CHEST: No respiratory distress. Clear to auscultation. No wheezes rales or rhonchi HEART: Regular rate and rhythm. No murmur heard. Normal peripheral pulses. ABDOMEN: Soft, nontender, nondistended, normal active bowel sounds. MSK: Normal range of motion. No edema. SKIN: Erythema and swelling to the left knee. Mild tenderness. Midline incision the intact otherwise. NEURO: Alert and oriented x3. No focal deficits. PSYCH: Normal mood and affect. Course Vital Signs Vital signs: Vital Signs Temperature 98 F 02/22/23 14:35 Pulse Rate 92 02/22/23 14:35 Respiratory Rate 18 02/22/23 14:35 Blood Pressure 144/65 H 02/22/23 14:35 Pulse Oximetry 97 02/22/23 14:35 Oxygen Delivery Room Air 02/22/23 14:35 Temperature 98 F 02/22/23 14:35 Pulse Rate 74 02/22/23 20:39 Respiratory Rate 19 02/22/23 20:39 Blood Pressure 153/74 H 02/22/23 20:39 Pulse Oximetry 100 02/22/23 20:39 Oxygen Delivery Room Air 02/22/23 14:35 Medical Decision Making MDM Narrative Medical decision making narrative: This is a 67-year-old female who presents to the ED with chief complaint of left knee pain and swelling. She had knee replacement [address] Quezada. vitals are normal. afebrile. Exam shows mild area of swelling and erythema to superior most aspect midline incision. The rest of the incision is intact. No significant effusion to the knee. Dr. Quezada was able to come in and evaluate the patient as well as perform an incision and drainage. the abscess was drained successfully and Dr. Quezada requested I start her on doxycycline b.i.d.. Pt will be discharged in stable condition. Return precautions given and supportive measures discussed. Pt is understanding and agreeable with plan for discharge and follow-up with PC/ortho. Vital Signs Vital Signs: Vital Signs Te
[2023-02-22] MEDS: LIDOCAINE HCL 1% LOCAL INJ 10 ML VIAL INFILTRATE (20:19)
--- NOTE | 2023-02-22 20:29 | PM.CNOR ---
Assessment and Plan Assessment and plan (1) Abscess: Code(s): L02.91 - Cutaneous abscess, unspecified Status: Acute Assessment and Plan: Patient is a 67-year-old female well known to me Who under went left total knee replacement 2 and half months ago. she had been doing fine until 2 days ago she started noticing a tender bump form at the very proximal end of her incision. She called earlier today I asked her to meet me in the emergency as the office was not open today. On exam she has full range of motion of her knee and no knee effusion or warmth. She has a 1 cm area of swelling at the proximal in the incision a few mm lateral to the incision itself with there is a tiny area of eschar over skin with the appearance of a pointing abscess. There was faint erythema 1 cm radius around this area. It was tender. There are no other areas of tenderness. My impression was that this was a suture abscess. I recommended incising it to drain it and take a culture. After ChloraPrep prep local anesthesia was used with 1% plain lidocaine 8 cc in the skin proximal medial lateral to this area we used an 11 blade scalpel and made a 5 mm incision through thinned skin that was near blister-like and this brought us down to a core of thick white material about an 8th of an inch diameter sphere which we cultured on the swab and we will send this for culture and this left a 3167 in cavity which I carefully probed and there was no additional drainage and this was clearly a localized process. Patient was given instructions to keep 4 x 4 sponges on this which will cone picker from the pharmacy. Starting tomorrow she may take off the sponges and may shower and the soapy water can go over this area then she can reapply 4 x 4 sponges and when it is a dry eschar she can just keep a Band-Aid on this. We gave her 1 dose of doxycycline 100 mg tonight and she will be given a 10 day course to continue at home and I will see her back next week. If she has any signs of worsening redness or increased pain she will call me as I will be available all weekend. Otherwise she will see us next Saturday in the office. History of Present Illness HPI Consult date: 02/22/23 Chief complaint: sent from doctor for post op abscess [facility] Social History Social History Smoking status: Never smoker Additional smoking assessment comments: DENIES ANY FORM OF TOBACCO USE Alcohol intake: current Alcohol use details: 2 DRINKS PER MONTH Living arrangements: with family Spiritual care concerns: No Meds Home Medications and Allergies Home Medications Medication Instructions Recorded Confirmed Type alprazolam 0.5 mg tablet 0.5 mg PO PRN PRN Anxiety 11/19/22 11/19/22 History cholecalciferol (vitamin D3) 125 125 mcg PO DAILY 11/19/22 12/10/22 History mcg (5,000 unit) tablet fluoxetine 20 mg capsule 20 mg PO DAILY 11/19/22 12/10/22 History gabapentin 300 mg capsule 300 mg PO BID FIBROMYALGIA 11/19/22 12/10/22 History gabapentin 300 mg capsule 600 mg PO HS 11/19/22 12/10/22 History metoprolol succinate 25 mg 25 mg PO DAILY MIGRAINS 11/19/22 12/10/22 History tablet,extended release 24 hr minoxidil 2.5 mg tablet 1.25 mg PO DAILY 11/19/22 12/10/22 History zolpidem 5 mg tablet 5 mg PO HS 11/19/22 12/10/22 History acetaminophen 500 mg tablet 1,000 mg PO Q6H #90 tabs 12/11/22 Rx apixaban 2.5 mg tablet (Eliquis) 2.5 mg PO Q12HR #28 tabs 12/11/22 Rx cefdinir 300 mg capsule 300 mg PO Q12HR #14 caps 12/11/22 Rx oxycodone 5 mg tablet 5 mg PO Q4HR #40 tabs 12/11/22 Rx polyethylene glycol 3350 17 gram 17 g PO QAM #30 ea 12/11/22 Rx oral powder packet (Miralax) sennosides 8.6 mg-docusate sodium 2 tab PO BID #60 tabs 12/11/22 Rx 50 mg tablet (Senokot-S) doxycycline hyclate 100 mg capsule 100 mg PO BID 10 days #20 caps 02/22/23 Rx Allergies Allergy/AdvReac Type Severity Reaction Status Date / Time No Known Allergies Allergy Verified 02/22/23 19:31 Vital
[2023-02-22] MEDS: DOXYCYCLINE HYCLATE 100 MG TABLET PO (20:37)
[2023-02-22 20:39] VITALS: BP 153/74; PULSE 74; RESP 19; O2SAT 100
== END 2023-02-22 20:41 | disposition home or self-care (01) ==
PROVIDERS: Emergency Provider Physician Assistant; PCP Student in an Organized Health Care Education/Training Program
DX: T81.41XA Infection following a procedure, superficial incisional surgical site, initial encounter (principal); L02.416 Cutaneous abscess of left lower limb; Z96.652 Presence of left artificial knee joint
CPT/HCPCS: 87070; 87147; 87181; 87186; 87205; 99283; A9270